=== PATIENT | male | born 1950 | race Two or more races ===

== ENCOUNTER 2024-10-28 13:15 | Emergency (ER) | payer OTHER ==
[~2024-10-28] VITALS: Ht 180.3 cm; Wt 83.5 kg
[2024-10-28] MEDS ORDERED: FARXIGA10 MG (14:00)
[2024-10-28] MEDS ORDERED: ZESTRIL20 MG (14:00)
[2024-10-28] MEDS ORDERED: ACTOS30 MG (14:00)
[2024-10-28] MEDS ORDERED: AMLODIPINE BESY10 MG (14:01)
[2024-10-28] MEDS ORDERED: ORPHENADRINE CITRATE 30 MG/ML AMPUL IM ONE (16:15)
[2024-10-28] MEDS ORDERED: KETOROLAC TROMETHAMINE 60 MG VIAL IM ONE (16:15)
[2024-10-28] MEDS ORDERED: NORFLEX100MG PO (17:25)
== END 2024-10-28 17:44 | disposition home or self-care (01) ==
LOC: ER 13:18
DX: S19.9XXA Unspecified injury of neck, initial encounter (principal); V49.9XXA Car occupant (driver) (passenger) injured in unspecified traffic accident, initial encounter; Y93.89 Activity, other specified; Y92.89 Other specified places as the place of occurrence of the external cause; Y99.8 Other external cause status